=== PATIENT | male | born 1980 | race Caucasian/White ===

== ENCOUNTER 2018-09-11 18:43 | Emergency (ER) | payer OTHER ==
[~2018-09-11] VITALS: Wt 90.7 kg
== END 2018-09-11 20:28 | disposition short-term general hospital (02) ==
LOC: ED 18:43
DX: S63.255A Unspecified dislocation of left ring finger, initial encounter (principal); S63.105A Unspecified dislocation of left thumb, initial encounter; S05.32XA Ocular laceration without prolapse or loss of intraocular tissue, left eye, initial encounter; M54.2 Cervicalgia; R00.0 Tachycardia, unspecified; R55 Syncope and collapse; V49.9XXA Car occupant (driver) (passenger) injured in unspecified traffic accident, initial encounter; Y93.89 Activity, other specified; Y92.488 Other paved roadways as the place of occurrence of the external cause; Y99.8 Other external cause status